=== PATIENT | male | born 1985 | race Caucasian/White ===

== ENCOUNTER → 2020-12-12 | Outpatient (REF) | payer BC ==
[2020-12-12 11:36] LABS: HEMATOCRIT 46.2 % (42.0-52.0)
[2020-12-12 12:04] LABS: FERRITIN 228 NG/ML (26-388); IRON (FE) 64 UG/DL (65-175); PERCENT SATURATION 22.1 % (19.7-50.0); TOTAL IRON BINDING CAPACITY 290 UG/DL (250-450)
[2020-12-12 12:23] LABS: HEPATITIS B SURFACE ANTIGEN NEGATIVE (NEGATIVE)
[2020-12-12 12:50] LABS: HEPATITIS C VIRUS ABY INDEX 0.1 INDEX (<0.8)
[2020-12-12 12:51] LABS: HEPATITIS B CORE ANTIBODY IGM NEGATIVE (NEGATIVE)
[2020-12-12 12:53] LABS: HEPATITIS A ANTIBODY IGM NEGATIVE (NEGATIVE)
[2020-12-14 15:07] LABS: ANTINUCLEAR ANTIBODIES DIRECT Negative (Negative); CERULOPLASMIN 23.7 mg/dL (16.0-31.0)
== END ==
LOC: M LAB REF 11:10
PROVIDERS: ATTEND Nurse Practitioner Adult Health
DX: R94.5 Abnormal results of liver function studies (principal)

== ENCOUNTER → 2020-12-19 | Outpatient (CLI) | payer BC ==
--- NOTE | 2020-12-19 08:00 | REP ---
INDICATION: ELEVATED LFT'S COMPARISON: None. TECHNIQUE: Real time blackburn scale ultrasound examination using curved array transducer. FINDINGS: Liver is minimally enlarged at 18 cm craniocaudal length with normal contour and echogenicity. No focal hepatic lesions are identified. Pancreas is incompletely evaluated due to interposed bowel gas. The gallbladder is normal and without gallstones, wall thickening, or pericholecystic fluid. No biliary ductal dilatation is appreciated and the common bile duct measures 4.1 mm diameter. Right kidney is normal in reniform shape without hydronephrosis and measures 11.0 x 5.1 x 5.4 cm. No ascites in the visualized right upper quadrant. IMPRESSION: Liver is minimally enlarged. Otherwise normal right upper quadrant ultrasound. <Electronically signed by Manolo Romo > 12/19/20 [id number]
== END ==
LOC: M RAD 06:15
PROVIDERS: ATTEND Nurse Practitioner Adult Health
DX: R94.5 Abnormal results of liver function studies (principal)

== ENCOUNTER → 2022-05-07 | Outpatient (REF) | payer BC ==
[2022-05-07 14:20] LABS: HEPATITIS B CORE ANTIBODY IGM NEGATIVE (NEGATIVE); HEPATITIS B SURFACE ANTIGEN NEGATIVE (NEGATIVE); HEPATITIS C VIRUS ABY INDEX 0.1 INDEX (<0.8); HIV 1&2 SCREEN CENTAUR NEGATIVE (NEGATIVE)
== END ==
LOC: M LAB REF 12:04
PROVIDERS: ATTEND Nurse Practitioner Adult Health
DX: R94.5 Abnormal results of liver function studies (principal)